=== PATIENT | male | born 2000 | race African-American/Black ===

== ENCOUNTER 2022-10-18 07:00 | Emergency (ER) | payer SELFPAY ==
[~2022-10-18] VITALS: Ht 175.3 cm; Wt 59.0 kg
[2022-10-18 07:04] VITALS: BP 113/78
[2022-10-18] MEDS ORDERED: IBUPROFEN 600MG TABLET PO ONE (10:00)
[2022-10-18] MEDS ORDERED: CYCL10TA21 MT (10:11)
[2022-10-18] MEDS ORDERED: IBUP-2029 MT (10:11)
== END 2022-10-18 10:40 | disposition home or self-care (01) ==
LOC: ER 07:00
DX: R07.89 Other chest pain (principal); R51.9 Headache, unspecified; R10.9 Unspecified abdominal pain; J45.909 Unspecified asthma, uncomplicated; V99.XXXA Unspecified transport accident, initial encounter; Y93.89 Activity, other specified; Y92.89 Other specified places as the place of occurrence of the external cause; Y99.8 Other external cause status
CPT/HCPCS: 99283